=== PATIENT | male | born 1950 | race Two or more races ===

== ENCOUNTER 2017-12-03 10:34 | Emergency (ER) | payer MEDICARE, OTHER, MEDICAID ==
[~2017-12-03] VITALS: Ht 170.2 cm; Wt 115.7 kg
[2017-12-03 13:31] VITALS: BP 152/61
[2017-12-03] MEDS ORDERED: NAPROXEN 500 MG TABLET PO STA (13:40)
--- NOTE | 2017-12-03 13:41 | RAD ---
Left knee, 4 views, 12/03/2017: HISTORY: Chronic knee pain There is moderate marginal spurring at the knee joint and at the patellofemoral articulation. No fracture or dislocation is identified. There is a moderate size knee joint effusion. Surgical clips are present in the soft tissues medially. There is mild generalized subcutaneous edema. IMPRESSION: 1. Moderate hypertrophic degenerative change. 2. Moderate sized left knee joint effusion. 3. No acute bony abnormality is detected. Electronically signed by: Matheus Marsh MD (12/03/2017 1:37 PM) [facility]
[2017-12-03] MEDS ORDERED: CYCLOBENZAPRINE 10 MG TABLET. PO ONE (13:45)
[2017-12-03] MEDS ORDERED: HYDROcodone/APAP 5/325MG 1 TAB TABLET PO ONE (13:45)
--- NOTE | 2017-12-03 13:57 | PHYS DOC ---
Past Medical History Past Medical History: Diabetes-Type II, Hypertension Past Surgical History: Coronary Bypass Surgery Alcohol Use: None Drug Use: None Adult General Chief Complaint Chief Complaint: LOWEREXTREMITY INJURY HPI HPI Patient is a 67 year old male with history of hypertension, diabetes type 2, who presents today complaining of moderate constant left knee pain that began yesterday when he he stood up from sitting position, he states he had a pop sound from the knee. Patient states he has been able to ambulate since then but it's very painful to put weight on the left lower extremity. Patient denies falling. Denies taking anything for his pain. Review of Systems Review of Systems Constitutional: Denies fever or chills [] Musculoskeletal: Reports left knee pain. Integument: Denies rash or skin lesions [] Neurologic: Denies headache, focal weakness or sensory changes [] All other systems were reviewed and found to be within normal limits, except as documented in this note. Current Medications Current Medications Current Medications Medications (Trade) Dose Ordered Sig/Susy Start Time Stop Time Status Last Admin Dose Admin Acetaminophen/ Hydrocodone Bitart (Lortab 5/325) 1 tab 1X ONCE 12/03/17 13:45 12/03/17 13:46 DC 12/03/17 13:46 1 TAB Cyclobenzaprine HCl (Flexeril) 10 mg 1X ONCE 12/03/17 13:45 12/03/17 13:46 DC 12/03/17 13:46 10 MG Naproxen (Naprosyn) 500 mg 1X STAT 12/03/17 13:40 12/03/17 13:41 DC 12/03/17 13:47 500 MG Allergies Allergies Allergies Coded Allergies Type Severity Reaction Last Updated Verified No Known Drug Allergies 12/03/17 No Physical Exam Physical Exam Constitutional: Well developed, well nourished, no acute distress, non-toxic appearance. [] Skin: Warm, dry, no erythema, no rash. [] Back: No tenderness, no CVA tenderness. [] Extremities: Left knee with no obvious deformity. Mild soft tissue swelling noted diffusely throughout the knee. Tenderness on the posterior aspect of the knee. Full range of motion to the left knee, negative Kit sign negative Tania sign, negative anterior-posterior drawer sign. +2 left pedal pulse. Cap refill less than 2 seconds left lower extremity. Neurologic: Alert and oriented X 3, normal motor function, normal sensory function, no focal deficits noted. [] Psychologic: Affect normal, judgement normal, mood normal. [] Current Patient Data Vital Signs Vital Signs Date Time Temp Pulse Resp B/P (MAP) Pulse Ox O2 Delivery O2 Flow Rate FiO2 12/03/17 13:31 99.0 74 16 152/61 (91) 96 Room Air 99.0 EKG EKG [] Radiology/Procedures Radiology/Procedures []PROCEDURE: KNEE LEFT 4V Left knee, 4 views, 12/03/2017: HISTORY: Chronic knee pain There is moderate marginal spurring at the knee joint and at the patellofemoral articulation. No fracture or dislocation is identified. There is a moderate size knee joint effusion. Surgical clips are present in the soft tissues medially. There is mild generalized subcutaneous edema. IMPRESSION: 1. Moderate hypertrophic degenerative change. 2. Moderate sized left knee joint effusion. 3. No acute bony abnormality is detected. Electronically signed by: Matheus Marsh MD (12/03/2017 1:37 PM) [facility] DICTATED and SIGNED BY: MATHEUS MARSH MD DATE: 12/03/17 1335 Course & Med Decision Making Course & Med Decision Making Pertinent Labs and Imaging studies reviewed. (See chart for details) This is a 67-year-old male patient presented to the ED today with left knee pain , no known injury. Left knee x-rays interpreted by radiologist were noted Moderate hypertrophic degenerative changes, moderate size left knee joint effusion otherwise no acute abnormality. Rolando bandages applied to the left knee as well as immobilizer, neurovascular exam is intact. Ice elevation encouraged. Diclofenac for pain. Follow-up with PCP orthopedic doctor provided in one week. Dragon Disclaimer Dragon Disclaimer This electronic medical record was generated, in whole or in part, using a voice recognition dictation system. Departure Departure Impression: Primary Impression: Left knee pain Additional Impressions: Joint effusion, knee DJD (degenerative joint disease) of knee Disposition: 01 HOME, SELF-CARE Condition: STABLE Referrals: GRACE BETANCOURT MD (PCP) RAMAKRISHNA ANGELO MD follow up in one week Patient Instructions: Arthritis, Degenerative-Brief, Knee Effusion, Knee Pain Additional Instructions: You were seen for left knee pain, your left knee x-rays shows you have arthritis as well as joint effusion/fluid collection in the knee. Wear the immobilizer provided as tolerated. Ice and elevate the extremity. Follow-up with the provided orthopedic doctor in one week if symptoms continue. Scripts Diclofenac Sodium (DICLOFENAC SODIUM) 50 Mg Tablet.dr 1 TAB PO BID, #30 TAB 0 Refills Prov: KVNG LUIS JELLY 12/03/17 Problem Qualifiers Primary Impression: Left knee pain Chronicity: acute Qualified Codes: M25.562 - Pain in left knee Additional Impressions: Joint effusion, knee Laterality: left Qualified Codes: M25.462 - Effusion, left knee DJD (degenerative joint disease) of knee Osteoarthritis type: unspecified Laterality: left Qualified Codes: M17.12 - Unilateral primary osteoarthritis, left knee GOKULCARISSAKVNG Mensah APRN Dec 03, 2017 13:57
[2017-12-03] MEDS ORDERED: DICL50TA4 PO (14:02)
== END 2017-12-03 14:40 | disposition home or self-care (01) ==
LOC: ER 10:34
DX: M17.12 Unilateral primary osteoarthritis, left knee (principal); I10 Essential (primary) hypertension; E11.9 Type 2 diabetes mellitus without complications; Z95.5 Presence of coronary angioplasty implant and graft
CPT/HCPCS: 29505; 73564; 99284-25

== ENCOUNTER 2018-07-12 03:39 | Inpatient (IN) | payer OTHER, MEDICAID ==
[~2018-07-12] VITALS: Ht 177.8 cm; Wt 115.7 kg
[~2018-07-12 03:39] MED LIST: DICL50TA4 PO
[2018-07-12] MEDS ORDERED: HYDROmorphone 2 MG/ML VIAL IV/SQ PRN (04:15)
[2018-07-12] MEDS ORDERED: ONDANSETRON PF 4 MG/2 ML VIAL. IV ONE (04:15)
[2018-07-12] MEDS ORDERED: IV NORMAL SALINE 1000ML BAG 1,000 ML IV SCH ×2 (04:15→08:10)
--- NOTE | 2018-07-12 04:18 | PHYS DOC ---
Past Medical History Past Medical History: Diabetes-Type II, Hypertension (CAROL LAFLEUR Jr., DO) Past Surgical History: Coronary Bypass Surgery (CAROL LAFLEUR Jr., DO) Alcohol Use: None Drug Use: None (CAROL LAFLEUR Jr., DO) Adult General Chief Complaint Chief Complaint: FLANK PAIN [facility] HPI Patient is a 68-year-old male who presents with complaint of right-sided flank/ right upper quadrant abdominal pain. Pain has been going on for the last couple of days but over the last 24 hours, pain has been fairly constant. Pain had gotten worse this morning and he currently rates it at an 8 out of 10. He admits to nausea and has had a little bit of dry heaving but no actual vomiting. He denies any diarrhea. He also denies any fever. Patient states the pain is worsened with palpation. He states that nothing improves the pain. (CAROL LAFLEUR Jr., DO) Review of Systems Review of Systems Constitutional: Denies fever or chills [] Respiratory: Denies cough or shortness of breath [] Cardiovascular: No additional information not addressed in HPI [] GI: Complains of right upper quadrant abdominal pain with nausea. Denies vomiting or diarrhea[] Musculoskeletal: Denies back pain or joint pain [] All other systems were reviewed and found to be within normal limits, except as documented in this note. (CAROL LAFLEUR Jr., DO) Current Medications Current Medications Current Medications Medications (Trade) Dose Ordered Sig/Susy Start Time Stop Time Status Last Admin Dose Admin Ceftriaxone Sodium (Rocephin) 1 gm 1X ONCE 07/12/18 05:30 07/12/18 05:31 DC 07/12/18 06:06 1 GM Fentanyl Citrate (Fentanyl 2ml Vial) 25 mcg 1X PRN PRN 07/12/18 08:30 07/12/18 08:28 25 MCG Hydromorphone HCl (Dilaudid) 1 mg PRN Q15MIN PRN 07/12/18 04:15 07/13/18 04:14 07/12/18 04:43 1 MG Info (CONTRAST GIVEN -- Rx MONITORING) 1 each PRN DAILY PRN 07/12/18 05:45 07/14/18 05:44 Iohexol (Omnipaque 300 Mg/ml) 75 ml 1X ONCE 07/12/18 05:45 07/12/18 05:46 DC 07/12/18 05:33 75 ML Labetalol HCl (Normodyne Iv Push) 10 mg 1X ONCE 07/12/18 07:00 07/12/18 07:01 DC 07/12/18 07:03 10 MG Morphine Sulfate (Morphine Sulfate) 2 mg PRN Q2HR PRN 07/12/18 08:15 07/13/18 08:14 Ondansetron HCl (Zofran) 4 mg PRN Q8HRS PRN 07/12/18 08:15 07/13/18 08:14 Sodium Chloride 1,000 ml @ 100 mls/hr Q10H 07/12/18 08:10 07/12/18 12:09 (CATRACHITA GARCIA MD) Allergies Allergies Allergies Coded Allergies Type Severity Reaction Last Updated Verified No Known Drug Allergies 12/03/17 No (CATRACHITA GARCIA MD) Physical Exam Physical Exam Constitutional: Well developed, well nourished, no acute distress, non-toxic appearance. [] HENT: Normocephalic, atraumatic, bilateral external ears normal, oropharynx moist, no oral exudates, nose normal. [] Eyes: PERRLA, EOMI, conjunctiva normal, no discharge. [] Neck: Normal range of motion, no tenderness, supple, no stridor. [] Cardiovascular: Regular rate and rhythm[] Lungs & Thorax: Bilateral breath sounds clear to auscultation [] Abdomen: Bowel sounds normal, soft, with positive right upper quadrant tenderness and positive Fernández sign. [] Skin: Warm, dry, no erythema, no rash. [] Extremities: No tenderness, no cyanosis, no clubbing, ROM intact, no edema. [] Neurologic: Alert and oriented X 3, no focal deficits noted. [] (CAROL LAFLEUR Jr. DO) Current Patient Data Vital Signs Vital Signs Date Time Temp Pulse Resp B/P (MAP) Pulse Ox O2 Delivery O2 Flow Rate FiO2 07/12/18 09:23 86 139/78 (98) 99 Nasal Cannula 2.0 07/12/18 08:28 20 07/12/18 04:00 98.3 98.3 (CATRACHITA GARCIA MD) Lab Values Laboratory Tests Test 07/12/18 04:10 07/12/18 04:20 Urine Collection Type Unknown Urine Color Yellow Urine Clarity Clear Urine pH 7.0 Urine Specific [place] 1.020 Urine Protein Negative mg/dL (NEG-TRACE) Urine Glucose (UA) >=1000 mg/dL (NEG) Urine Ketones (Stick) Trace mg/dL (NEG) Urine Blood Negative (NEG) Urine Nitrite Negative (NEG) Urine Bilirubin Negative (NEG) Urine Urobilinogen Dipstick 0.2 mg/dL (0.2 mg/dL) Urine Leukocyte Esterase Moderate (NEG) Urine RBC 1-2 /HPF (0-2) Urine WBC 20-40 /HPF (0-4) Urine Squamous Epithelial Cells Few /LPF Urine Bacteria 0 /HPF (0-FEW) Urine Mucus Slight /LPF White Blood Count 8.9 x10^3/uL (4.0-11.0) Red Blood Count 5.88 x10^6/uL (4.30-5.70) H Hemoglobin 16.1 g/dL (13.0-17.5) Hematocrit 49.0 % (39.0-53.0) Mean Corpuscular Volume 83 fL (79-100) Mean Corpuscular Hemoglobin 27 pg (25-35) Mean Corpuscular Hemoglobin Concent 33 g/dL (31-37) Red Cell Distribution Width 13.9 % (11.5-14.5) Platelet Count 203 x10^3/uL (140-400) Neutrophils (%) (Auto) 63 % (31-73) Lymphocytes (%) (Auto) 26 % (24-48) Monocytes (%) (Auto) 9 % (0-9) Eosinophils (%) (Auto) 1 % (0-3) Basophils (%) (Auto) 1 % (0-3) Neutrophils # (Auto) 5.6 x10^3uL (1.8-7.7) Lymphocytes # (Auto) 2.3 x10^3/uL (1.0-4.8) Monocytes # (Auto) 0.8 x10^3/uL (0.0-1.1) Eosinophils # (Auto) 0.1 x10^3/uL (0.0-0.7) Basophils # (Auto) 0.1 x10^3/uL (0.0-0.2) Sodium Level 137 mmol/L (136-145) Potassium Level 4.0 mmol/L (3.5-5.1) Chloride Level 100 mmol/L (98-107) Carbon Dioxide Level 30 mmol/L (21-32) Anion Gap 7 (6-14) Blood Urea Nitrogen 12 mg/dL (8-26) Creatinine 1.0 mg/dL (0.7-1.3) Estimated GFR (Cockcroft-Gault) 74.5 BUN/Creatinine Ratio 12 (6-20) Glucose Level 263 mg/dL (70-99) H Calcium Level 9.0 mg/dL (8.5-10.1) Total Bilirubin 0.5 mg/dL (0.2-1.0) Aspartate Amino Transferase (AST) 18 U/L (15-37) Alanine Aminotransferase (ALT) 23 U/L (16-63) Alkaline Phosphatase 120 U/L (46-116) H Troponin I Quantitative < 0.017 ng/mL (0.000-0.055) Total Protein 7.4 g/dL (6.4-8.2) Albumin 3.4 g/dL (3.4-5.0) Albumin/Globulin Ratio 0.9 (1.0-1.7) L Lipase 150 U/L (73-393) Laboratory Tests 07/12/18 04:20 Laboratory Tests 07/12/18 04:20 (CATRACHITA GARCIA MD) Lab Values Laboratory Tests Test 07/12/18 04:10 07/12/18 04:20 Urine Collection Type Unknown Urine Color Yellow Urine Clarity Clear Urine pH 7.0 Urine Specific [place] 1.020 Urine Protein Negative mg/dL (NEG-TRACE) Urine Glucose (UA) >=1000 mg/dL (NEG) Urine Ketones (Stick) Trace mg/dL (NEG) Urine Blood Negative (NEG) Urine Nitrite Negative (NEG) Urine Bilirubin Negative (NEG) Urine Urobilinogen Dipstick 0.2 mg/dL (0.2 mg/dL) Urine Leukocyte Esterase Moderate (NEG) Urine RBC 1-2 /HPF (0-2) Urine WBC 20-40 /HPF (0-4) Urine Squamous Epithelial Cells Few /LPF Urine Bacteria 0 /HPF (0-FEW) Urine Mucus Slight /LPF White Blood Count 8.9 x10^3/uL (4.0-11.0) Red Blood Count 5.88 x10^6/uL (4.30-5.70) H Hemoglobin 16.1 g/dL (13.0-17.5) Hematocrit 49.0 % (39.0-53.0) Mean Corpuscular Volume 83 fL (79-100) Mean Corpuscular Hemoglobin 27 pg (25-35) Mean Corpuscular Hemoglobin Concent 33 g/dL (31-37) Red Cell Distribution Width 13.9 % (11.5-14.5) Platelet Count 203 x10^3/uL (140-400) Neutrophils (%) (Auto) 63 % (31-73) Lymphocytes (%) (Auto) 26 % (24-48) Monocytes (%) (Auto) 9 % (0-9) Eosinophils (%) (Auto) 1 % (0-3) Basophils (%) (Auto) 1 % (0-3) Neutrophils # (Auto) 5.6 x10^3uL (1.8-7.7) Lymphocytes # (Auto) 2.3 x10^3/uL (1.0-4.8) Monocytes # (Auto) 0.8 x10^3/uL (0.0-1.1) Eosinophils # (Auto) 0.1 x10^3/uL (0.0-0.7) Basophils # (Auto) 0.1 x10^3/uL (0.0-0.2) Sodium Level 137 mmol/L (136-145) Potassium Level 4.0 mmol/L (3.5-5.1) Chloride Level 100 mmol/L (98-107) Carbon Dioxide Level 30 mmol/L (21-32) Anion Gap 7 (6-14) Blood Urea Nitrogen 12 mg/dL (8-26) Creatinine 1.0 mg/dL (0.7-1.3) Estimated GFR (Cockcroft-Gault) 74.5 BUN/Creatinine Ratio 12 (6-20) Glucose Level 263 mg/dL (70-99) H Calcium Level 9.0 mg/dL (8.5-10.1) Total Bilirubin 0.5 mg/dL (0.2-1.0) Aspartate Amino Transferase (AST) 18 U/L (15-37) Alanine Aminotransferase (ALT) 23 U/L (16-63) Alkaline Phosphatase 120 U/L (46-116) H Troponin I Quantitative < 0.017 ng/mL (0.000-0.055) Total Protein 7.4 g/dL (6.4-8.2) Albumin 3.4 g/dL (3.4-5.0) Albumin/Globulin Ratio 0.9 (1.0-1.7) L Lipase 150 U/L (73-393) Laboratory Tests 07/12/18 04:20 Laboratory Tests 07/12/18 04:20 (CAROL LAFLEUR Jr., DO) EKG EKG [] (CAROL LAFLEUR Jr., DO) Radiology/Procedures Radiology/Procedures [] (CAROL LAFLEUR Jr., DO) Course & Med Decision Making Course & Med Decision Making Pertinent Labs and Imaging studies reviewed. (See chart for details) [] (CAROL LAFLEUR Jr., DO) Dragon Disclaimer Dragon Disclaimer This electronic medical record was generated, in whole or in part, using a voice recognition dictation system. (CAROL LAFLEUR Jr., DO) Departure Departure Referrals: GRACE BETANCOURT MD (PCP) Assessment/Plan Assessment/Plan 68-year-old male presenting to the emergency department prior to my shift. Patient was signed out to me at 6 AM with plans to follow-up on CT imaging. CT imaging shows gallstones cannot exclude cholecystitis. Otherwise reviewing the patient's blood work white blood count is within normal limits. Urinalysis shows no bacteria with moderate leuk esterase. Negative nitrites. Possible urinary tract infection. Chemistry panel shows hyperglycemia. Patient is a known diabetic. On reexamination the patient's pain is primarily for my examination in the flank region. Nontender right upper quadrant. Nontender McBurney's point. Nondistended. No rebound tenderness or guarding of the abdomen. Mild right CVA tenderness. On my reexamination I retook his temperature and he was afebrile. Blood pressure was quite elevated over 220. Patient was given a small dose of IV labetalol which improved his blood pressure. Ultrasound shows no signs of cholecystitis. We will bring the patient in for medical monitoring. I spoke with Dr. wilson who accepts patient for admission. Patient was stable upon admission to the hospital. (CATRACHITA GARCIA MD) CAROL LAFLEUR Jr., DO Jul 12, 2018 04:18 CATRACHITA GARCIA MD Jul 12, 2018 09:45
[2018-07-12 04:30] LABS: BILIRUBIN,URINE NEGATIVE (NEG); CLARITY,URINE CLEAR; COLOR,URINE YELLOW; NITRITE,URINE NEGATIVE (NEG); PROTEIN,URINE NEGATIVE (NEG-TRACE); UROBILINOGEN,URINE 0.2 mg/dL (0.2 mg/dL)
[2018-07-12 04:40] LABS: BASO # 0.1 x10^3/uL (0.0-0.2); BASO % 1 % (0-3); EOS # 0.1 x10^3/uL (0.0-0.7); EOS % 1 % (0-3); HEMOGLOBIN 16.1 g/dL (13.0-17.5); LYMPH # 2.3 x10^3/uL (1.0-4.8); LYMPH % 26 % (24-48); MEAN CORPUSCULAR HEMOGLOBIN 27 pg (25-35); MEAN CORPUSCULAR HGB CONC 33 g/dL (31-37); MEAN CORPUSCULAR VOLUME 83 fL (79-100); MONO # 0.8 x10^3/uL (0.0-1.1); MONO % 9 % (0-9); NEUT # 5.6 x10^3uL (1.8-7.7); NEUT % 63 % (31-73); PLATELET COUNT 203 x10^3/uL (140-400); RED BLOOD COUNT 5.88 x10^6/uL (4.30-5.70); RED CELL DISTRIBUTION WIDTH 13.9 % (11.5-14.5); WHITE BLOOD COUNT 8.9 x10^3/uL (4.0-11.0)
[2018-07-12 04:42] LABS: GFR 74.5
[2018-07-12 04:43] LABS: BACTERIA,URINE 0 /HPF (0-FEW); SQUAMOUS EPITHELIAL CELL,UR FEW /LPF; WBC,URINE 20-40 /HPF (0-4)
[2018-07-12 04:48] LABS: ALBUMIN 3.4 g/dL (3.4-5.0); ALBUMIN/GLOBULIN RATIO 0.9 (1.0-1.7); TOTAL BILIRUBIN 0.5 mg/dL (0.2-1.0); TOTAL PROTEIN 7.4 g/dL (6.4-8.2)
[2018-07-12] MEDS ORDERED: cefTRIAXone IV Push 1 GM VIAL. IVP ONE (05:30)
[2018-07-12] MEDS ORDERED: IOHEXOL 300 MG/ML 100ML VIAL. IV ONE (05:45)
[2018-07-12] MEDS ORDERED: CONTRAST GIVEN. MC PRN (05:45)
--- NOTE | 2018-07-12 06:35 | RAD ---
INDICATION: ruq pain; Omni 300, 75ml COMPARISON: None. TECHNIQUE: Axial CT images obtained through the abdomen and pelvis with contrast. One or more of the following individualized dose reduction techniques were utilized for this examination: 1. Automated exposure control; 2. Adjustment of the mA and/or kV according to patient size; 3. Use of iterative reconstruction technique. FINDINGS: Calcific atherosclerosis. Fat-containing inguinal hernias. No intrahepatic bile duct dilation. Gallbladder is largely contracted with questionable indistinctness of adjacent fat versus artifact. No peripancreatic fluid collection. Spleen unremarkable. No left-sided hydronephrosis. Urinary bladder is partially distended. No right-sided hydronephrosis. Colonic diverticulosis. No periappendiceal inflammation. No dilated loops of bowel to suggest obstruction. Degenerative changes throughout the spine with multilevel central canal and neural foraminal stenosis. IMPRESSION: 1. The gallbladder is contracted with some questionable indistinctness of the adjacent fat. This could be artifactual in nature but a small amount of pericholecystic edema is possible given this finding. Would consider obtaining a ultrasound to further evaluate for gallbladder inflammation given this possible finding. 2. No evidence of appendicitis. 3. Multilevel degenerative changes throughout the spine with central canal neural foraminal stenosis with some of these regions appearing severe in nature Electronically signed by: Reese Parkinson MD (07/12/2018 6:32 AM) [facility]
[2018-07-12] MEDS ORDERED: LABETALOL 20 MG/4 ML DISP.SYRIN. IVP ONE (07:00)
--- NOTE | 2018-07-12 08:02 | RAD ---
Indication:DX: Abnormal CT scan today 07-12-18; RUQ abd pain TECHNIQUE: Grayscale, color Doppler and spectral waveform is of the abdomen obtained. COMPARISON:CT abdomen pelvis from same day FINDINGS: Pancreas is not well visualized. No gallstones, pericholecystic fluid or gallbladder wall thickening. Right kidney measures 11 cm in length without hydronephrosis. Liver is mildly enlarged measuring 18 cm in longest dimension diffuse increased echogenicity and decreased through transmission. Main portal vein is patent. CBD is not visualized. IVC and aorta are suboptimally visualized. IMPRESSION: Limited exam due to body habitus. 1. Mild hepatomegaly with hepatic steatosis. 2. No cholelithiasis or sonographic evidence of acute cholecystitis. 3. CBD not visualized. Electronically signed by: Curtis Yang DO (07/12/2018 7:59 AM) [facility]
[2018-07-12] MEDS ORDERED: ONDANSETRON PF 4 MG/2 ML VIAL. IV PRN (08:15)
[2018-07-12] MEDS ORDERED: MORPHINE SULFATE 2 MG/ML VIAL. IV PRN (08:15)
[2018-07-12] MEDS ORDERED: fentaNYL PF VIAL 100 MCG/2 ML VIAL IV PRN (08:30)
[2018-07-12 10:30] VITALS: BP 147/75
[2018-07-12] MEDS ORDERED: INSU100I13 SQ (11:20)
[2018-07-12] MEDS ORDERED: INSU100C4 SQ (11:20)
[2018-07-12] MEDS ORDERED: METF10007 PO (11:21)
[2018-07-12] MEDS ORDERED: LISI30TA4 PO (11:21)
[2018-07-12] MEDS ORDERED: DEXTROSE 50% 25 GM / 50ML DISP.SYRIN. IV PRN (11:30)
[2018-07-12] MEDS: INSULIN LISPRO 300 UNITS/3 ML INSULN.PEN. SQ SCH ×6 (11:44→21:00)
--- NOTE | 2018-07-12 11:47 | PDOC2 ---
CONSULT Date of Consult Date of Consult DATE: 07/12/18 TIME: 11:41 Reason for Consult Reason for Consult: abdominal pain Referring Physician Referring Physician: Dr Chambers Identification/Chief Complaint Chief Complaint abdominal pain Source Source: Chart review, Patient History of Present Illness Reason for Visit: 3 day history RUQ pain with radiation to back. Associated nausea. Food seems to aggravate. Denies constipation or diarrhea. Reports no similar symptoms in past Past Medical History Cardiovascular: HTN, AR, Hyperlipidemia Endocrine: Diabetes Past Surgical History Past Surgical History: CABG Family History Family History: Other (noncontributory to current illness ) Social History No ALCOHOL: none Drugs: None Lives: with Family Current Medications Current Medications Current Medications Hydromorphone HCl (Dilaudid) 1 mg PRN Q15MIN PRN IV/SQ PAIN GREATER THAN 3/10 Last administered on 07/12/18at 04:43; Start 07/12/18 at 04:15; Stop 07/13/18 at 04:14 Sodium Chloride 1,000 ml @ 1,000 mls/hr Q1H IV Last administered on 07/12/18at 04:44; Start 07/12/18 at 04:15; Stop 07/12/18 at 05:14; Status DC Ondansetron HCl (Zofran) 4 mg 1X ONCE IV Last administered on 07/12/18at 04:43 ; Start 07/12/18 at 04:15; Stop 07/12/18 at 04:18; Status DC Ceftriaxone Sodium (Rocephin) 1 gm 1X ONCE IVP Last administered on 07/12/18at 06:06; Start 07/12/18 at 05:30; Stop 07/12/18 at 05:31; Status DC Iohexol (Omnipaque 300 Mg/ml) 75 ml 1X ONCE IV Last administered on 07/12/18at 05:33; Start 07/12/18 at 05:45; Stop 07/12/18 at 05:46; Status DC Info (CONTRAST GIVEN -- Rx MONITORING) 1 each PRN DAILY PRN MC SEE COMMENTS; Start 07/12/18 at 05:45; Stop 07/14/18 at 05:44 Labetalol HCl (Normodyne Iv Push) 10 mg 1X ONCE IVP Last administered on at 07:03; Start 07/12/18 at 07:00; Stop 07/12/18 at 07:01; Status DC Ondansetron HCl (Zofran) 4 mg PRN Q8HRS PRN IV NAUSEA/VOMITING; Start 07/12/18 at 08:15; Stop 07/13/18 at 08:14 Morphine Sulfate (Morphine Sulfate) 2 mg PRN Q2HR PRN IV PAIN Last administered on 07/12/18at 10:46; Start 07/12/18 at 08:15; Stop 07/13/18 at 08:14 Sodium Chloride 1,000 ml @ 100 mls/hr Q10H IV Last administered on 07/12/18at 10:43; Start 07/12/18 at 08:10; Stop 07/12/18 at 12:09 Fentanyl Citrate (Fentanyl 2ml Vial) 25 mcg 1X PRN PRN IV SEVERE PAIN Last administered on 07/12/18at 08:28; Start 07/12/18 at 08:30 Insulin Glargine (Lantus) 20 units QHS SQ ; Start 07/12/18 at 21:00 Diclofenac Sodium (Voltaren) 50 mg BIDWMEALS PO ; Start 07/12/18 at 17:00 Insulin Human Lispro (HumaLOG) 20 units TIDWMEALS SQ ; Start 07/12/18 at 12:00 Lisinopril (Prinivil) 30 mg DAILY PO ; Start 07/12/18 at 12:00 Insulin Human Lispro (HumaLOG) 0-5 UNITS TIDWMEALS SQ ; Start 07/12/18 at 12:00 Dextrose (Dextrose 50%-Water Syringe) 12.5 gm PRN Q15MIN PRN IV SEE COMMENTS; Start 07/12/18 at 11:30 Active Scripts Active Diclofenac Sodium 50 Mg Tablet.dr 1 Tab PO BID Reported Lisinopril 30 Mg Tablet 1 Tab PO DAILY Metformin Hcl 1,000 Mg Tablet 1,000 Mg PO BIDWMEALS Lantus Solostar (Insulin Glargine,Hum.rec.anlog) 100 Unit/1 Ml Insuln.pen 20 Unit SQ QHS Novolog (Insulin Aspart) 100 Unit/1 Ml Cartridge 20 Unit SQ TIDAC Allergies Allergies: Coded Allergies: No Known Drug Allergies (Unverified , 12/03/17) ROS General: No: Chills, Other (fevers) PSYCHOLOGICAL ROS: No: Anxiety, Depression Eyes: No Blurry vision, No Double vision Hematological and Lymphatic: No: Bleeding Problems, Blood Clots Respiratory: No: Cough, SOB with excertion Cardiovascular: No Chest Pain, No Palpitations Gastrointestinal: Yes Other (see hpi) Genitourinary: No Dysuria Musculoskeletal: No Joint Pain, No Muscle Pain Neurological: No Confusion, No Numbness/Tingling Skin: No Pruritus, No Rash Physical Exam General: Alert, Oriented X3, Cooperative, No acute distress HEENT: PERRLA, Mucous membr. moist/pink Lungs: Clear to auscultation, Normal air movement Heart: Regular rate, Normal S1, Normal S2, No murmurs Abdomen: Soft, Other (ND, mild epigastric TTP) Skin: No rashes, No breakdown Neuro: Normal gait, Normal speech Psych/Mental Status: Mental status NL, Mood NL MUSCULOSKELETAL: No deformity, No swelling Vitals VITALS Vital Signs Date Time Temp Pulse Resp B/P (MAP) Pulse Ox O2 Delivery O2 Flow Rate FiO2 07/12/18 11:16 20 99 Room Air 2.0 07/12/18 10:30 98.1 70 147/75 (99) 98.1 Labs Labs Laboratory Tests Test 07/12/18 04:10 07/12/18 04:20 07/12/18 10:04 Urine Collection Type Unknown Urine Color Yellow Urine Clarity Clear Urine pH 7.0 Urine Specific [place] 1.020 Urine Protein Negative mg/dL (NEG-TRACE) Urine Glucose (UA) >=1000 mg/dL (NEG) Urine Ketones (Stick) Trace mg/dL (NEG) Urine Blood Negative (NEG) Urine Nitrite Negative (NEG) Urine Bilirubin Negative (NEG) Urine Urobilinogen Dipstick 0.2 mg/dL (0.2 mg/dL) Urine Leukocyte Esterase Moderate (NEG) Urine RBC 1-2 /HPF (0-2) Urine WBC 20-40 /HPF (0-4) Urine Squamous Epithelial Cells Few /LPF Urine Bacteria 0 /HPF (0-FEW) Urine Mucus Slight /LPF White Blood Count 8.9 x10^3/uL (4.0-11.0) Red Blood Count 5.88 x10^6/uL (4.30-5.70) Hemoglobin 16.1 g/dL (13.0-17.5) Hematocrit 49.0 % (39.0-53.0) Mean Corpuscular Volume 83 fL (79-100) Mean Corpuscular Hemoglobin 27 pg (25-35) Mean Corpuscular Hemoglobin Concent 33 g/dL (31-37) Red Cell Distribution Width 13.9 % (11.5-14.5) Platelet Count 203 x10^3/uL (140-400) Neutrophils (%) (Auto) 63 % (31-73) Lymphocytes (%) (Auto) 26 % (24-48) Monocytes (%) (Auto) 9 % (0-9) Eosinophils (%) (Auto) 1 % (0-3) Basophils (%) (Auto) 1 % (0-3) Neutrophils # (Auto) 5.6 x10^3uL (1.8-7.7) Lymphocytes # (Auto) 2.3 x10^3/uL (1.0-4.8) Monocytes # (Auto) 0.8 x10^3/uL (0.0-1.1) Eosinophils # (Auto) 0.1 x10^3/uL (0.0-0.7) Basophils # (Auto) 0.1 x10^3/uL (0.0-0.2) Sodium Level 137 mmol/L (136-145) Potassium Level 4.0 mmol/L (3.5-5.1) Chloride Level 100 mmol/L (98-107) Carbon Dioxide Level 30 mmol/L (21-32) Anion Gap 7 (6-14) Blood Urea Nitrogen 12 mg/dL (8-26) Creatinine 1.0 mg/dL (0.7-1.3) Estimated GFR (Cockcroft-Gault) 74.5 BUN/Creatinine Ratio 12 (6-20) Glucose Level 263 mg/dL (70-99) Calcium Level 9.0 mg/dL (8.5-10.1) Total Bilirubin 0.5 mg/dL (0.2-1.0) Aspartate Amino Transf (AST/SGOT) 18 U/L (15-37) Alanine Aminotransferase (ALT/SGPT) 23 U/L (16-63) Alkaline Phosphatase 120 U/L (46-116) Troponin I Quantitative < 0.017 ng/mL (0.000-0.055) Total Protein 7.4 g/dL (6.4-8.2) Albumin 3.4 g/dL (3.4-5.0) Albumin/Globulin Ratio 0.9 (1.0-1.7) Lipase 150 U/L (73-393) Glucose (Fingerstick) 230 mg/dL (70-99) Laboratory Tests Test 07/12/18 04:10 07/12/18 04:20 07/12/18 10:04 Urine Collection Type Unknown Urine Color Yellow Urine Clarity Clear Urine pH 7.0 Urine Specific [place] 1.020 Urine Protein Negative mg/dL (NEG-TRACE) Urine Glucose (UA) >=1000 mg/dL (NEG) Urine Ketones (Stick) Trace mg/dL (NEG) Urine Blood Negative (NEG) Urine Nitrite Negative (NEG) Urine Bilirubin Negative (NEG) Urine Urobilinogen Dipstick 0.2 mg/dL (0.2 mg/dL) Urine Leukocyte Esterase Moderate (NEG) Urine RBC 1-2 /HPF (0-2) Urine WBC 20-40 /HPF (0-4) Urine Squamous Epithelial Cells Few /LPF Urine Bacteria 0 /HPF (0-FEW) Urine Mucus Slight /LPF White Blood Count 8.9 x10^3/uL (4.0-11.0) Red Blood Count 5.88 x10^6/uL (4.30-5.70) Hemoglobin 16.1 g/dL (13.0-17.5) Hematocrit 49.0 % (39.0-53.0) Mean Corpuscular Volume 83 fL (79-100) Mean Corpuscular Hemoglobin 27 pg (25-35) Mean Corpuscular Hemoglobin Concent 33 g/dL (31-37) Red Cell Distribution Width 13.9 % (11.5-14.5) Platelet Count 203 x10^3/uL (140-400) Neutrophils (%) (Auto) 63 % (31-73) Lymphocytes (%) (Auto) 26 % (24-48) Monocytes (%) (Auto) 9 % (0-9) Eosinophils (%) (Auto) 1 % (0-3) Basophils (%) (Auto) 1 % (0-3) Neutrophils # (Auto) 5.6 x10^3uL (1.8-7.7) Lymphocytes # (Auto) 2.3 x10^3/uL (1.0-4.8) Monocytes # (Auto) 0.8 x10^3/uL (0.0-1.1) Eosinophils # (Auto) 0.1 x10^3/uL (0.0-0.7) Basophils # (Auto) 0.1 x10^3/uL (0.0-0.2) Sodium Level 137 mmol/L (136-145) Potassium Level 4.0 mmol/L (3.5-5.1) Chloride Level 100 mmol/L (98-107) Carbon Dioxide Level 30 mmol/L (21-32) Anion Gap 7 (6-14) Blood Urea Nitrogen 12 mg/dL (8-26) Creatinine 1.0 mg/dL (0.7-1.3) Estimated GFR (Cockcroft-Gault) 74.5 BUN/Creatinine Ratio 12 (6-20) Glucose Level 263 mg/dL (70-99) Calcium Level 9.0 mg/dL (8.5-10.1) Total Bilirubin 0.5 mg/dL (0.2-1.0) Aspartate Amino Transf (AST/SGOT) 18 U/L (15-37) Alanine Aminotransferase (ALT/SGPT) 23 U/L (16-63) Alkaline Phosphatase 120 U/L (46-116) Troponin I Quantitative < 0.017 ng/mL (0.000-0.055) Total Protein 7.4 g/dL (6.4-8.2) Albumin 3.4 g/dL (3.4-5.0) Albumin/Globulin Ratio 0.9 (1.0-1.7) Lipase 150 U/L (73-393) Glucose (Fingerstick) 230 mg/dL (70-99) Assessment/Plan Assessment/Plan abdominal pain US without stones will check HIDA, if normal rec GI consult ZAINA DAIZ APRN Jul 12, 2018 11:47
[2018-07-12] MEDS ORDERED: HYDROcodone/APAP 5/325MG 1 TAB TABLET PO PRN (12:30)
[2018-07-12] MEDS ORDERED: predniSONE 20 MG TABLET PO ONE (12:30)
[2018-07-12] MEDS: METHOCARBAMOL 500 MG TABLET PO SCH ×2 (12:38→21:07)
[2018-07-12] MEDS: LISINOPRIL 10 MG TABLET PO SCH (12:39)
[2018-07-12] MEDS: ENOXAPARIN 40 MG/0.4 ML SYRINGE. SQ SCH (12:40)
[2018-07-12] MEDS: HYDROcodone/APAP 5/325MG 1 TAB TABLET PO PRN (12:40)
--- NOTE | 2018-07-12 13:09 | HP ---
ADMIT DATE: 07/12/2018 CHIEF COMPLAINT: Abdominal and back pain. HISTORY OF PRESENT ILLNESS AND HOSPITAL COURSE: This patient is a 68-year-old male who is morbidly obese, states that for the last 3 days, he has been having left and right flank pain. This does radiate into his abdomen. The patient states he was unable to get comfortable and sleep for the last several nights. The patient has difficult time describing his symptoms. At sometimes, he states that food does cause the symptoms to get worse. At other time, he states that mobility causes symptoms to get worse. He states the pain is constant. The patient denies significant constipation, nausea, vomiting. The patient was seen in the ER. CAT scan showed contracted gallbladder with evidence of spinal stenosis in the L and T-spine. Gallbladder sonogram does not show gallstones. Due to the constellation of symptoms and the patient's symptomatology, he was admitted for possible cholecystitis versus myofascial intractable back pain with flank pain. PAST MEDICAL HISTORY: Significant for: 1. Type 2 diabetes. 2. Hypertension. 3. Coronary artery disease, status post coronary artery bypass graft. PAST SURGICAL HISTORY: Significant for hernia repair as well as coronary artery bypass graft. FAMILY HISTORY: Significant for mother who with heart attack, a father who with heart disease. SOCIAL HISTORY: The patient has never smoked. He does not use alcohol. He is single and lives alone. ALLERGIES: Denies. REVIEW OF SYSTEMS: The patient denies any fever, diarrhea, nausea, vomiting or constipation. The patient's initial laboratory revealed high blood sugars of 260, but negative CBC, and normal electrolyte panel. PHYSICAL EXAMINATION: GENERAL: This is a well-nourished, morbidly obese, male, in mild distress post-treatment with IV morphine and fluids. HEENT: Benign. NECK: Supple. CARDIAC: Regular rate and rhythm. LUNGS: Clear. ABDOMEN: Mildly diffusely tender mostly on the left, but he did have tenderness in the right upper quadrant on palpation as well. He had tenderness in his paraspinous muscles on his mid back. He had negative radicular symptoms and negative straight leg raise. EXTREMITIES: Reveal 2+ pulses without edema. NEUROLOGIC: Showed no unilateral findings. ASSESSMENT: 1. Suspected myofascial back pain. 2. Cannot rule out occult abnormal gallbladder pain. PLAN: To consult Surgery for gallbladder abnormalities on CT and possible PIPIDA scan. Continue with symptomatic treatment of back pain, add p.o. steroids and muscle relaxers, as well as PT and OT modalities and monitor the patient's symptoms. Discharge once stable, pending surgery evaluation. GRACE BETANCOURT MD DR: LITO/yash JOB#: [id number] / [id number]
[2018-07-12 15:00] VITALS: BP 105/69
[2018-07-12] MEDS: DICLOFENAC SODIUM 25 MG TABLET.DR PO SCH (17:04)
[2018-07-12 19:00] VITALS: BP 142/67
[2018-07-12] MEDS ORDERED: INSULIN GLARGINE 300 UNITS/3 ML INSULN.PEN. SQ SCH (21:00)
[2018-07-12] MEDS: CEPHALEXIN 250 MG CAPSULE. PO SCH (21:06)
[2018-07-12 23:00] VITALS: BP 139/61
[2018-07-13 03:00] VITALS: BP 140/60
[2018-07-13 05:35] LABS: BASO # 0.1 x10^3/uL (0.0-0.2); BASO % 1 % (0-3); EOS % 0 % (0-3); HEMATOCRIT 46.8 % (39.0-53.0); LYMPH # 2.2 x10^3/uL (1.0-4.8); LYMPH % 27 % (24-48); MEAN CORPUSCULAR HEMOGLOBIN 27 pg (25-35); MEAN CORPUSCULAR HGB CONC 32 g/dL (31-37); MEAN CORPUSCULAR VOLUME 84 fL (79-100); MONO # 0.8 x10^3/uL (0.0-1.1); MONO % 10 % (0-9); NEUT # 5.1 x10^3uL (1.8-7.7); NEUT % 62 % (31-73); PLATELET COUNT 202 x10^3/uL (140-400); RED BLOOD COUNT 5.58 x10^6/uL (4.30-5.70); RED CELL DISTRIBUTION WIDTH 14.2 % (11.5-14.5); WHITE BLOOD COUNT 8.3 x10^3/uL (4.0-11.0)
[2018-07-13 06:02] LABS: CALCIUM 8.6 mg/dL (8.5-10.1); CREATININE 0.8 mg/dL (0.7-1.3); GFR 96.4; POTASSIUM 3.8 mmol/L (3.5-5.1)
[2018-07-13] MEDS ORDERED: SINCALIDE IV ONE (07:45)
[2018-07-13] MEDS ORDERED: NORMAL SALINE IV ONE (07:45)
[2018-07-13] MEDS ORDERED: METH500T7 PO (09:14)
[2018-07-13] MEDS ORDERED: HYDR-2761 PO (09:14)
[2018-07-13] MEDS ORDERED: PRED-220 PO (09:14)
[2018-07-13] MEDS ORDERED: CEPH-264 PO (09:14)
[2018-07-13] MEDS: METHOCARBAMOL 500 MG TABLET PO SCH (09:59)
[2018-07-13] MEDS: DICLOFENAC SODIUM 25 MG TABLET.DR PO SCH (10:00)
[2018-07-13] MEDS: CEPHALEXIN 250 MG CAPSULE. PO SCH (10:01)
[2018-07-13] MEDS: LISINOPRIL 10 MG TABLET PO SCH (10:02)
[2018-07-13] MEDS: INSULIN LISPRO 300 UNITS/3 ML INSULN.PEN. SQ SCH ×4 (10:08→12:31)
[2018-07-13 10:35] VITALS: BP 165/75
--- NOTE | 2018-07-13 11:02 | NUR ---
SW following. Discussed with RN, RN advised no SW needs and anticipates pt will discharge home today (07/13/18).
--- NOTE | 2018-07-13 12:06 | RAD ---
HEPATOBILIARY SCAN WITH EJECTION FRACTION 07/13/2018 12:02 PM History: Abdominal pain Procedure: Serial static images are obtained of the liver and biliary system in the frontal projection following IV administration of 5.5 mCi of Technetium 99m Choletec. After filling of the gallbladder, 2.3 mcg of sincalide were infused over 30 minutes and dynamic imaging continued over this period. The gallbladder ejection fraction was calculated. Findings: There is prompt hepatic clearance of tracer from the blood pool. There is homogeneous distribution throughout the liver. The gallbladder ejection fraction measures 27% (normal gallbladder EF is 35% or greater). IMPRESSION: 1. The cystic duct and common bile duct are patent. Negative for acute cholecystitis. 2. The gallbladder ejection fraction is abnormally low measuring 27 percent. Findings may indicate chronic cholecystitis or gallbladder dyskinesia. Electronically signed by: Goran Bruno MD (07/13/2018 12:02 PM) [id number]
[2018-07-13] MEDS: HYDROcodone/APAP 5/325MG 1 TAB TABLET PO PRN (12:24)
[2018-07-13] MEDS: ENOXAPARIN 40 MG/0.4 ML SYRINGE. SQ SCH (12:30)
--- NOTE | 2018-07-13 13:14 | PDOC ---
SURGICAL PROGRESS NOTE Subjective Patient feeling much better this afternoon denies any nausea still has some mid back and lower abdominal pain Vital Signs Vital Signs Date Time Temp Pulse Resp B/P (MAP) Pulse Ox O2 Delivery O2 Flow Rate FiO2 07/13/18 12:24 94 Room Air 07/13/18 10:35 75 18 165/75 (105) 2.0 07/13/18 03:00 98.3 98.3 I&O Intake and Output 07/13/18 06:59 Intake Total 1840 ml Balance 1840 ml Intake Oral 840 ml IV Total 1000 ml # Voids 5 PATIENT HAS A LOBATO: No General: Alert, Oriented X3, Cooperative, No acute distress Abdomen: Normal bowel sounds, Soft, No tenderness, Other Labs Laboratory Tests Test 07/12/18 04:10 07/12/18 04:20 07/12/18 10:04 07/12/18 17:00 Urine Collection Type Unknown Urine Color Yellow Urine Clarity Clear Urine pH 7.0 Urine Specific [place] 1.020 Urine Protein Negative mg/dL (NEG-TRACE) Urine Glucose (UA) >=1000 mg/dL (NEG) Urine Ketones (Stick) Trace mg/dL (NEG) Urine Blood Negative (NEG) Urine Nitrite Negative (NEG) Urine Bilirubin Negative (NEG) Urine Urobilinogen Dipstick 0.2 mg/dL (0.2 mg/dL) Urine Leukocyte Esterase Moderate (NEG) Urine RBC 1-2 /HPF (0-2) Urine WBC 20-40 /HPF (0-4) Urine Squamous Epithelial Cells Few /LPF Urine Bacteria 0 /HPF (0-FEW) Urine Mucus Slight /LPF White Blood Count 8.9 x10^3/uL (4.0-11.0) Red Blood Count 5.88 x10^6/uL (4.30-5.70) Hemoglobin 16.1 g/dL (13.0-17.5) Hematocrit 49.0 % (39.0-53.0) Mean Corpuscular Volume 83 fL (79-100) Mean Corpuscular Hemoglobin 27 pg (25-35) Mean Corpuscular Hemoglobin Concent 33 g/dL (31-37) Red Cell Distribution Width 13.9 % (11.5-14.5) Platelet Count 203 x10^3/uL (140-400) Neutrophils (%) (Auto) 63 % (31-73) Lymphocytes (%) (Auto) 26 % (24-48) Monocytes (%) (Auto) 9 % (0-9) Eosinophils (%) (Auto) 1 % (0-3) Basophils (%) (Auto) 1 % (0-3) Neutrophils # (Auto) 5.6 x10^3uL (1.8-7.7) Lymphocytes # (Auto) 2.3 x10^3/uL (1.0-4.8) Monocytes # (Auto) 0.8 x10^3/uL (0.0-1.1) Eosinophils # (Auto) 0.1 x10^3/uL (0.0-0.7) Basophils # (Auto) 0.1 x10^3/uL (0.0-0.2) Sodium Level 137 mmol/L (136-145) Potassium Level 4.0 mmol/L (3.5-5.1) Chloride Level 100 mmol/L (98-107) Carbon Dioxide Level 30 mmol/L (21-32) Anion Gap 7 (6-14) Blood Urea Nitrogen 12 mg/dL (8-26) Creatinine 1.0 mg/dL (0.7-1.3) Estimated GFR (Cockcroft-Gault) 74.5 BUN/Creatinine Ratio 12 (6-20) Glucose Level 263 mg/dL (70-99) Calcium Level 9.0 mg/dL (8.5-10.1) Total Bilirubin 0.5 mg/dL (0.2-1.0) Aspartate Amino Transf (AST/SGOT) 18 U/L (15-37) Alanine Aminotransferase (ALT/SGPT) 23 U/L (16-63) Alkaline Phosphatase 120 U/L (46-116) Troponin I Quantitative < 0.017 ng/mL (0.000-0.055) Total Protein 7.4 g/dL (6.4-8.2) Albumin 3.4 g/dL (3.4-5.0) Albumin/Globulin Ratio 0.9 (1.0-1.7) Lipase 150 U/L (73-393) Glucose (Fingerstick) 230 mg/dL (70-99) 344 mg/dL (70-99) Test 07/12/18 21:26 07/13/18 04:05 07/13/18 09:52 07/13/18 11:49 Glucose (Fingerstick) 263 mg/dL (70-99) 227 mg/dL (70-99) 171 mg/dL (70-99) White Blood Count 8.3 x10^3/uL (4.0-11.0) Red Blood Count 5.58 x10^6/uL (4.30-5.70) Hemoglobin 15.0 g/dL (13.0-17.5) Hematocrit 46.8 % (39.0-53.0) Mean Corpuscular Volume 84 fL (79-100) Mean Corpuscular Hemoglobin 27 pg (25-35) Mean Corpuscular Hemoglobin Concent 32 g/dL (31-37) Red Cell Distribution Width 14.2 % (11.5-14.5) Platelet Count 202 x10^3/uL (140-400) Neutrophils (%) (Auto) 62 % (31-73) Lymphocytes (%) (Auto) 27 % (24-48) Monocytes (%) (Auto) 10 % (0-9) Eosinophils (%) (Auto) 0 % (0-3) Basophils (%) (Auto) 1 % (0-3) Neutrophils # (Auto) 5.1 x10^3uL (1.8-7.7) Lymphocytes # (Auto) 2.2 x10^3/uL (1.0-4.8) Monocytes # (Auto) 0.8 x10^3/uL (0.0-1.1) Eosinophils # (Auto) 0.0 x10^3/uL (0.0-0.7) Basophils # (Auto) 0.1 x10^3/uL (0.0-0.2) Sodium Level 139 mmol/L (136-145) Potassium Level 3.8 mmol/L (3.5-5.1) Chloride Level 102 mmol/L (98-107) Carbon Dioxide Level 29 mmol/L (21-32) Anion Gap 8 (6-14) Blood Urea Nitrogen 10 mg/dL (8-26) Creatinine 0.8 mg/dL (0.7-1.3) Estimated GFR (Cockcroft-Gault) 96.4 Glucose Level 160 mg/dL (70-99) Calcium Level 8.6 mg/dL (8.5-10.1) Laboratory Tests Test 07/12/18 17:00 07/12/18 21:26 07/13/18 04:05 07/13/18 09:52 Glucose (Fingerstick) 344 mg/dL (70-99) 263 mg/dL (70-99) 227 mg/dL (70-99) White Blood Count 8.3 x10^3/uL (4.0-11.0) Red Blood Count 5.58 x10^6/uL (4.30-5.70) Hemoglobin 15.0 g/dL (13.0-17.5) Hematocrit 46.8 % (39.0-53.0) Mean Corpuscular Volume 84 fL (79-100) Mean Corpuscular Hemoglobin 27 pg (25-35) Mean Corpuscular Hemoglobin Concent 32 g/dL (31-37) Red Cell Distribution Width 14.2 % (11.5-14.5) Platelet Count 202 x10^3/uL (140-400) Neutrophils (%) (Auto) 62 % (31-73) Lymphocytes (%) (Auto) 27 % (24-48) Monocytes (%) (Auto) 10 % (0-9) Eosinophils (%) (Auto) 0 % (0-3) Basophils (%) (Auto) 1 % (0-3) Neutrophils # (Auto) 5.1 x10^3uL (1.8-7.7) Lymphocytes # (Auto) 2.2 x10^3/uL (1.0-4.8) Monocytes # (Auto) 0.8 x10^3/uL (0.0-1.1) Eosinophils # (Auto) 0.0 x10^3/uL (0.0-0.7) Basophils # (Auto) 0.1 x10^3/uL (0.0-0.2) Sodium Level 139 mmol/L (136-145) Potassium Level 3.8 mmol/L (3.5-5.1) Chloride Level 102 mmol/L (98-107) Carbon Dioxide Level 29 mmol/L (21-32) Anion Gap 8 (6-14) Blood Urea Nitrogen 10 mg/dL (8-26) Creatinine 0.8 mg/dL (0.7-1.3) Estimated GFR (Cockcroft-Gault) 96.4 Glucose Level 160 mg/dL (70-99) Calcium Level 8.6 mg/dL (8.5-10.1) Test 07/13/18 11:49 Glucose (Fingerstick) 171 mg/dL (70-99) I have reviewed the following HIDA scan was reviewed and shows no evidence of acute cholecystitis low ejection fraction possible biliary dyskinesia Problem List Problems Medical Problems: (1) Abdominal pain Status: Acute Assessment/Plan Patient is doing much better wishes to go home agree with discharge if he has further issues recommend outpatient evaluation JOSE CARLOS ESCOBAR MD Jul 13, 2018 13:14
--- NOTE | 2018-07-13 13:15 | NUR ---
DISCHARGE INSTRUCTIONS GIVEN, QUESTIONS AND CONCERNS ANSWERED, PATIENT VERBALIZED UNDERSTANDING OF DISCHARGE INFORMATION INCLUDING TAKING ALL MEDICATIONS INSTRUCTED AND FOLLOWING UP WITH HIS PRIMARY PROVIDER IN 1-2 WEEKS.
--- NOTE | 2018-07-13 13:54 | DS ---
DATE OF DISCHARGE: 07/13/2018 ADMITTING DIAGNOSIS: Abdominal pain consistent with cholecystitis. DISMISSAL DIAGNOSES: Negative findings for cholecystitis and abdominal and back pain due to osteoarthritis. The patient did have a HIDA scan, which showed some mild dysfunction and followup considerations as an outpatient will be made for cholecystectomy. The patient was treated with anti-inflammatory medications, muscle relaxers and plans to follow up in the office for continued care of back pain and PT and OT modalities as needed. DISCHARGE MEDICATIONS: Keflex 500 two pills b.i.d. for incidental finding of UTI; Lortab 5 one q.4 hours p.r.n. pain, #60 were given; methocarbamol 500 mg t.i.d.; prednisone taper starting at 50 mg daily, tapering by 10 mg every other day; diclofenac 50 mg b.i.d.; insulin in the form of NovoLog 20 units with meals; insulin in the form of Lantus 20 units at bedtime; lisinopril 30 mg daily; and metformin 1000 mg b.i.d. GRACE BETANCOURT MD DR: LITO/yash JOB#: [id number] / [id number]
[2018-07-13] MEDS ORDERED: LACTOBACILLUS RHAMNOSUS GG 1 CAPSULE. PO SCH (21:00)
== END 2018-07-13 13:10 | disposition home or self-care (01) | DRG 552 ==
LOC: ER 03:39 → 5 SOUTH 08:09
PROVIDERS: ADMIT Family Medicine; ATTEND Family Medicine
DX: M47.9 Spondylosis, unspecified (principal); M48.061 Spinal stenosis, lumbar region without neurogenic claudication; M48.04 Spinal stenosis, thoracic region; I10 Essential (primary) hypertension; E11.9 Type 2 diabetes mellitus without complications; E66.01 Morbid (severe) obesity due to excess calories; E78.5 Hyperlipidemia, unspecified; I25.10 Atherosclerotic heart disease of native coronary artery without angina pectoris; Z95.1 Presence of aortocoronary bypass graft; Z68.36 Body mass index [BMI] 36.0-36.9, adult; Z82.49 Family history of ischemic heart disease and other diseases of the circulatory system
CPT/HCPCS: 36415; 74177; 76705; 78227; 80048; 80053; 81001; 82962; 83690; 84484; 85025; 87086; 96361; 96374; 96375; A9537; J0696; J1170; J1650; J1815; J2270; J2405; J2805; J3010; J3490; J7030; J7512; Q9967; 97110; 97530; 99285-25

== ENCOUNTER → 2020-06-10 | Outpatient (CLI) | payer MEDICARE, MEDICAID ==
[~2020-06-10] MED LIST changes: +CEPH-264 PO; +HYDR-2761 PO; +INSU100C4 SQ; +INSU100I13 SQ; +LISI30TA4 PO; +METF10007 PO; +METH-561 PO; +PRED-220 PO
--- NOTE | 2020-06-10 13:45 | RAD ---
Bilateral lower extremity arterial duplex ultrasound study without comparison for claudication. TECHNIQUE AND FINDINGS: Real-time grayscale and color and spectral Doppler evaluation of the arteries of lower extremities is performed. The right common femoral artery is patent with elevated velocitie s which may reflect focal hemodynamically significant atherosclerosis in this artery. The right SFA a nd popliteal arteries are patent with biphasic flow, and mild multifocal atherosclerosis. No changes to suggest hemodynamically significant stenosis in this distribution. The right posterior tibial and peroneal arteries are not identified, and may be occluded. Right anterior tibial artery is patent and monophasic, and there is tardus parvus flow within the right dorsalis pedis artery. On the left, the re is biphasic flow within patent common femoral, superficial femoral, and popliteal arteries, with m ild multifocal atherosclerosis on grayscale imaging. In a symmetrical fashion, the left peroneal and posterior tibial arteries appear occluded. There is patency of the left anterior tibial artery with m onophasic flow providing in-line flow to a parvus tardus dorsalis pedis artery. IMPRESSION: 1. Bilaterally symmetrical hemodynamically significant runoff vessel atherosclerosis with suspected o cclusion of the peroneal and posterior tibial arteries, and stenosis of the anterior tibial arteries. 2. There may be focal hemodynamically significant atherosclerosis in the right common femoral artery as well. Electronically signed by: Nj Larios MD (06/10/2020 1:43 PM) [id number]
== END ==
LOC: US 10:51
PROVIDERS: ATTEND Family Medicine
DX: I70.203 Unspecified atherosclerosis of native arteries of extremities, bilateral legs (principal)
CPT/HCPCS: 93925